=== PATIENT | male | born 1965 | race Caucasian/White ===

== ENCOUNTER → 2020-12-08 | Outpatient (CLI) | payer OTHER | END | disposition home or self-care (01) | LOC: LAB SHORT 11:03 → LAB 11:03 | DX: D22.5 Melanocytic nevi of trunk (principal); D22.71 Melanocytic nevi of right lower limb, including hip | CPT/HCPCS: 88305 ==

== ENCOUNTER 2023-12-02 08:05 | Day surgery (SDC) | payer OTHER ==
[~2023-12-02] VITALS: Ht 182.9 cm; Wt 87.0 kg
[~2023-12-02 08:05] MED LIST: Lactated Ringer's 1,000 ML IV ONE; propofoL 50 ML IV ONE
[2023-12-02] MEDS ORDERED: ASPI81CH PO (08:57)
[2023-12-02] MEDS ORDERED: METO50ER PO (08:57)
[2023-12-02] MEDS ORDERED: Lactated Ringer's 1,000 ML IV ONE (09:01)
[2023-12-02 10:15] VITALS: BP 111/68
[2023-12-02 13:52] LABS: BASOPHILS ABSOLUTE AUTO 0.04 K/mm3 (0.00-0.23); BASOPHILS PERCENT AUTO 1 % (0-2); EOSINOPHILS ABSOLUTE AUTO 0.08 K/mm3 (0.00-0.68); EOSINOPHILS PERCENT AUTO 2 % (0-6); Hematocrit 42.1 % (37.0-53.0); Hemoglobin 14.5 g/dL (13.5-17.5); IMMATURE GRAN ABSOLUTE AUTO 0.02 K/mm3 (0.00-0.10); IMMATURE GRAN PERCENT AUTO 1 % (0-1); LYMPHOCYTES ABSOLUTE AUTO 1.34 K/mm3 (0.84-5.20); LYMPHOCYTES PERCENT AUTO 31 % (21-46); MONOCYTES ABSOLUTE AUTO 0.47 K/mm3 (0.16-1.47); MONOCYTES PERCENT AUTO 11 % (4-13); Mean Corpuscular HGB 32.7 pg (26.0-34.0); Mean Corpuscular HGB Conc 34.4 g/dL (31.5-36.5); Mean Corpuscular Volume 95 fL (80-100); Mean Platelet Volume 10.4 fL (9.1-12.4); NEUTROPHILS ABSOLUTE AUTO 2.32 K/mm3 (1.96-9.15); NEUTROPHILS PERCENT AUTO 54 % (41-73); Platelet Count 283 K/mm3 (150-400); RDW Coefficient Variation 12.3 % (11.7-14.2); RDW Standard Deviation 42.3 fL (35.1-46.3); Red Blood Cell Count 4.44 M/mm3 (4.30-5.90); White Blood Cell Count 4.27 K/mm3 (4.00-11.30)
[2023-12-02 14:23] LABS: Alanine Aminotransfer (ALT/SGP 32 U/L (12-78); Albumin, Blood 4.1 g/dL (3.4-5.0); Albumin/Globulin Ratio 1.5 (0.8-1.8); Alk Phos 53 U/L (50-136); Anion Gap 3 mmol/L (6-16); Aspartate Aminotrans (AST/SGOT 31 U/L (12-37); Bilirubin, Direct 0.3 mg/dL (0.0-0.3); Bilirubin, Indirect 1.8 mg/dL (0.1-0.7); Bilirubin, Total 2.1 mg/dL (0.1-1.0); Blood Urea Nitrogen 13 mg/dL (8-24); Bun/Creatinine Ratio 17.2 (12.0-20.0); CHOL/HDL RATIO 3.6; CO2, Blood 26 mmol/L (21-32); Calcium, Blood 9.1 mg/dL (8.5-10.1); Chloride, Blood 111 mmol/L (98-108); Cholesterol 190 mg/dL (50-200); Creatinine, Blood 0.76 mg/dL (0.60-1.20); Globulin, Blood 2.8 g/dL (2.2-4.0); Glomerular Filtration Rate 105 (60-); Glucose, Blood 96 mg/dL (70-99); HDL Cholesterol 53 mg/dL (>39); LDL/HDL RATIO 2.4; Low Density Lipoprotein Chol 127 mg/dL (0-110); Potassium, Blood 4.3 mmol/L (3.5-5.5); Prostate Specific Antigen 0.306 ng/mL (0.000-4.000); Sodium, Blood 140 mmol/L (136-145); Total Protein, Blood 6.9 g/dL (6.4-8.2); Triglycerides 52 mg/dL (30-160); Very Low Density Lipoprot Chol 10 mg/dL (6-32)
== END 2023-12-02 10:19 | disposition home or self-care (01) ==
LOC: ORSCSDS 08:05
PROVIDERS: Internal Medicine; Surgery
PROC: 0DJD8ZZ Inspection of Lower Intestinal Tract, Via Natural or Artificial Opening Endoscopic (ICD-10-PCS; principal; 2023-12-02 09:15)
DX: Z12.11 Encounter for screening for malignant neoplasm of colon (principal); K63.5 Polyp of colon; I10 Essential (primary) hypertension; Z79.82 Long term (current) use of aspirin; Z79.899 Other long term (current) drug therapy
CPT/HCPCS: 80053; 80061; 82248; 83036; 85025; 88305; G0103; J2704; J7120